=== PATIENT | male | born 1970 | race Caucasian/White ===

== ENCOUNTER 2018-04-15 09:20 | Emergency (ER) | payer SELFPAY ==
[~2018-04-15] VITALS: Ht 185.4 cm; Wt 122.7 kg
[2018-04-15 09:28] VITALS: BP 153/85
[2018-04-15] MEDS ORDERED: METF-960 PO (09:31)
[2018-04-15] MEDS ORDERED: LISI-661 PO (09:31)
[2018-04-15 09:39] LABS: GLUCOSE,POINT OF CARE 350 MG/DL (70-110)
[2018-04-15] MEDS ORDERED: LIDOCAINE/PF 1% 2 ML VIAL IM ONE (10:30)
[2018-04-15] MEDS ORDERED: CefTRIAXone SODIUM 1 GM/VIAL IM ONE (10:30)
[2018-04-15] MEDS ORDERED: AZITHROMYCIN 250 MG TABLET PO ONE (10:30)
== END 2018-04-15 11:32 | disposition home or self-care (01) ==
LOC: EMS 09:20
DX: N34.2 Other urethritis (principal); I10 Essential (primary) hypertension; E11.9 Type 2 diabetes mellitus without complications; Z79.84 Long term (current) use of oral hypoglycemic drugs
CPT/HCPCS: 81002; 82962; 96372; 99283; J0696; J3490